=== PATIENT | female | born 1965 | race Caucasian/White ===

== ENCOUNTER 2017-06-18 | Inpatient (IN) | payer OTHER ==
[2017-06-18] MEDS ORDERED: Nitroglycerin TAB 0.4 MG* 0.4 MG TAB ONE (00:16)
[2017-06-18] MEDS ORDERED: Heparin for STEMI(*) 5,000 UNITS/ML 1 ML VIAL IV ONE (00:19)
[2017-06-18] MEDS ORDERED: NS 0.9% 1000 ML* 1,000 ML IV ONE (00:19)
[2017-06-18] MEDS ORDERED: Aspirin Low Dose CHEW TAB* 81 MG PO ONE (00:19)
[2017-06-18] MEDS ORDERED: Ondansetron INJ* 2 MG/ML VIAL IV ONE (00:19)
[2017-06-18] MEDS ORDERED: Morphine INJ* 4 MG/ML 1 ML CARPUJECT IV ONE (00:19)
[2017-06-18] MEDS: Nitroglycerin TAB 0.4 MG* 0.4 MG TAB SL PRN ×2 (00:20→00:43)
[2017-06-18] MEDS ORDERED: Ticagrelor* 90 MG TAB PO ONE (00:24)
[2017-06-18] MEDS ORDERED: fentaNYL* 50 MCG/ML 2 ML VIAL (100 MCG VIAL) ONE ×2 (00:35→01:14)
[2017-06-18] MEDS ORDERED: Midazolam* 1 MG/ML 5 ML VIAL (5 MG) ONE (00:35)
[2017-06-18] MEDS ORDERED: Heparin 2 UNITS/ML IVPREMIX* 2,000 ML IV ONE (00:36)
[2017-06-18] MEDS ORDERED: nitroGLYCERIN DRIP* 250 ML ONE (00:36)
[2017-06-18] MEDS ORDERED: Lidocaine 1% INJ* 10 MG/ML 30 ML SDV ONE (00:36)
[2017-06-18] MEDS ORDERED: Iohexol 350 (CONTRAST) 200 ML MDV IV ONE (00:36)
[2017-06-18] MEDS ORDERED: Heparin(*) 1000 UNIT/ML 10 ML VIAL CATH LAB IV ONE (00:36)
[2017-06-18] MEDS ORDERED: VERAPAMIL 2.5 MG/ML 4 ML VIAL ONE (00:36)
[2017-06-18] MEDS ORDERED: methylPREDNISolone 125 MG* 2 ML VIAL ONE ×2 (01:00→02:04)
[2017-06-18 01:23] LABS: Hematocrit 38 % (35-47); Hemoglobin 12.9 g/dl (12.0-16.0); Mean Corpuscular HGB Conc 34 g/dl (31-36); Mean Corpuscular Hemoglobin 29 pg (27-31); Mean Corpuscular Volume 85 fL (80-97); Mean Platelet Volume 8 um3 (7.4-10.4); Red Blood Count 4.49 10^6/ul (4.0-5.4); Red Cell Distribution Width 15 % (10.5-15); White Blood Count 10.9 10^3/ul (3.5-10.8)
[2017-06-18 01:42] LABS: BUN/Creatinine Ratio 18.1 (8-20); Calcium 9.2 mg/dL (8.6-10.3); EGFR African American 109.8 (>60); EGFR Non-African American 85.4 (>60); Globulin 3.2 g/dL (2-4); Potassium 3.5 mmol/L (3.5-5.0); Total Bilirubin 0.2 mg/dL (0.2-1.0); Total Protein 7.2 g/dL (6.4-8.9)
[2017-06-18] MEDS ORDERED: Atropine SYRINGE* 0.1 MG/ML 10 ML SYRINGE (1 MG) ONE (01:46)
[2017-06-18 02:19] LABS: Hematocrit 36 % (35-47); Hemoglobin 11.9 g/dl (12.0-16.0); Mean Corpuscular HGB Conc 33 g/dl (31-36); Mean Corpuscular Hemoglobin 28 pg (27-31); Mean Corpuscular Volume 85 fL (80-97); Mean Platelet Volume 8 um3 (7.4-10.4); Red Blood Count 4.22 10^6/ul (4.0-5.4); Red Cell Distribution Width 15 % (10.5-15); White Blood Count 14.1 10^3/ul (3.5-10.8)
[2017-06-18] MEDS ORDERED: Nitroglycerin TAB 0.4 MG* 0.4 MG TAB SL PRN (02:20)
[2017-06-18] MEDS ORDERED: Ondansetron INJ* 2 MG/ML VIAL IV PRN (02:24)
[2017-06-18] MEDS ORDERED: Acetaminophen TAB* 325 MG PO PRN (02:24)
[2017-06-18] MEDS ORDERED: oxyCODONE/Acetamin 5/325 MG* TAB PO PRN (02:24)
[2017-06-18] MEDS ORDERED: NS 0.9% 1000 ML* 1,000 ML IV SCH (02:30)
[2017-06-18 02:34] LABS: BUN/Creatinine Ratio 20.3 (8-20); Calcium 8.3 mg/dL (8.6-10.3); EGFR African American 125.8 (>60); EGFR Non-African American 97.8 (>60); Potassium 3.4 mmol/L (3.5-5.0)
[2017-06-18 02:37] LABS: Troponin I 0.01 ng/mL (<0.04)
[2017-06-18 02:53] LABS: HDL Cholesterol 35.1 mg/dL
[2017-06-18] MEDS: Atorvastatin* 80 MG TAB PO SCH ×2 (03:01→17:36)
[2017-06-18] MEDS: Metoprolol Tartrate TAB* 25 MG PO SCH ×2 (03:01→11:36)
--- NOTE | 2017-06-18 04:41 | ED ---
Yesy Santana Thomas, scribed for Ambrosio Stroud MD on 06/18/17 at 0022 . HPI Chest Pain - HPI Summary HPI Summary: The pt is a 52 y/o F presenting to the ED c/o mid sternal CP that began an hour ago at 23:00. The pt rates the pain 10/10. The pain is aggravated and alleviated by nothing. 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 Pt additionally c/o N/V. Pt denies SOB. The patient is accompanied by her . She has a Hx of GERD. There is no known cardiac disease. - History of Current Complaint Chief Complaint: EDChestPainROMI Hx Obtained From: Patient, Family/Speech Therapy Assistant - is present Onset/Duration: Started Minutes Ago - onset 06/17/17 at 23:00, Still Present Timing: Constant Current Severity: Severe Pain Intensity: 10 Pain Scale Used: 0-10 Numeric Chest Pain Location: Mid Sternal Aggravating Factor(s): Nothing Alleviating Factor(s): Nothing Associated Signs and Symptoms: Positive: Nausea, Vomiting. Negative: Shortness of Breath Related History: Similar Episode/Dx as: - At first, the patient thought she was having an episode of GERD - Allergy/Home Medications Allergies/Adverse Reactions: Allergies Allergy/AdvReac Type Severity Reaction Status Date / Time Shellfish Allergy Allergy Swelling Verified 06/18/17 00:09 PMH/Surg Hx/FS Hx/Imm Hx Previously Healthy: No Cardiovascular History: Denies: Hx Coronary Artery Disease, Hx Pacemaker/ICD GI History: Reports: Hx Gastroesophageal Reflux Disease Psychiatric History: Denies: Hx Panic Disorder - Cancer History Hx Chemotherapy: No Hx Radiation Therapy: No - Surgical History Surgery Procedure, Year, and Place: Infectious Disease History: No Infectious Disease History: Denies: Traveled Outside the [place] in Last 30 Days - Family History Known Family History: Negative: Other - NEGATIVE: cystic fibrosis - Social History Lives: With Family Alcohol Use: Occasionally Hx Substance Use: No Substance Use Type: Reports: None Hx Tobacco Use: Yes Smoking Status (MU): Heavy Every Day Tobacco Smoker Type: Cigarettes Review of Systems Negative: Fever Positive: Chest Pain Negative: Shortness Of Breath Positive: Vomiting, Nausea All Other Systems Reviewed And Are Negative: Yes Physical Exam Triage Information Reviewed: Yes Vital Signs On Initial Exam: Initial Vitals Temp Pulse Resp BP Pulse Ox 97.2 F 72 20 149/85 98 06/18/17 00:00 06/18/17 00:00 06/18/17 00:00 06/18/17 00:00 06/18/17 00:00 Vital Signs Reviewed: Yes Appearance: Positive: Well-Appearing, Pain Distress - moderate Skin: Positive: Warm, Skin Color Reflects Adequate Perfusion, Dry Head/Face: Positive: Normal Head/Face Inspection Eyes: Positive: EOMI, ROMEO ENT: Positive: Normal ENT inspection Neck: Positive: Supple, Nontender Respiratory/Lung Sounds: Positive: Clear to Auscultation, Breath Sounds Present Cardiovascular: Positive: RRR Abdomen Description: Positive: Nontender, Soft Bowel Sounds: Positive: Present Musculoskeletal: Positive: Normal, Strength/ROM Intact Neurological: Positive: Normal, Sensory/Motor Intact, Alert, Oriented to Person Place, Time Psychiatric: Positive: Affect/Mood Appropriate Diagnostics - Vital Signs Vital Signs Temp Pulse Resp BP Pulse Ox 06/18/17 00:00 97.2 F 72 20 149/85 98 - Laboratory Lab Results: Lab Results 06/18/17 06/18/17 06/18/17 Range/Units 00:25 00:25 00:25 WBC 10.9 H (3.5-10.8) 10^3/ul RBC 4.49 (4.0-5.4) 10^6/ul Hgb 12.9 (12.0-16.0) g/dl Hct 38 (35-47) % MCV 85 (80-97) fL MCH 29 (27-31) pg MCHC 34 (31-36) g/dl RDW 15 (10.5-15) % Plt Count 291 (150-450) 10^3/ul MPV 8 (7.4-10.4) um3 Neut % (Auto) 60.5 (38-83) % Lymph % (Auto) 30.5 (25-47) % [place] % (Auto) 5.7 (1-9) % Eos % (Auto) 2.5 (0-6) % Baso % (Auto) 0.8 (0-2) % Absolute Neuts (auto) 6.6 (1.5-7.7) 10^3/ul Absolute Lymphs (auto) 3.3 (1.0-4.8) 10^3/ul Absolute Monos (auto) 0.6 (0-0.8) 10^3/ul Absolute Eos (auto) 0.3 (0-0.6) 10^3/ul Absolute Basos (auto) 0.1 (0-0.2) 10^3/ul Absolute Nucleated RBC 0.01 10^3/ul Nucleated RBC % 0.1 INR (Anticoag Therapy) 0.90 (0.89-1.11) APTT 24.8 L (26.0-36.3) seconds Sodium (133-145) mmol/L Potassium (3.5-5.0) mmol/L Chloride (101-111) mmol/L Carbon Dioxide (22-32) mmol/L Anion Gap (2-11) mmol/L BUN (6-24) mg/dL Creatinine (0.51-0.95) mg/dL Est GFR ( Amer) (>60) Est GFR (Non-Af Amer) (>60) BUN/Creatinine Ratio (8-20) Glucose (70-100) mg/dL Lactic Acid (0.5-2.0) mmol/L Calcium (8.6-10.3) mg/dL Total Bilirubin (0.2-1.0) mg/dL AST (13-39) U/L ALT (7-52) U/L Alkaline Phosphatase (34-104) U/L Total Creatine Kinase (10-223) U/L CK-MB (CK-2) (0.6-6.3) ng/mL Troponin I (<0.04) ng/mL B-Natriuretic Peptide 23 ( - 100) pg/mL Total Protein (6.4-8.9) g/dL Albumin (3.2-5.2) g/dL Globulin (2-4) g/dL Albumin/Globulin Ratio (1-3) Triglycerides mg/dL Cholesterol mg/dL LDL Cholesterol mg/dL LDL Cholesterol Direct mg/dL HDL Cholesterol mg/dL 06/18/17 06/18/17 06/18/17 Range/Units 00:25 00:25 01:13 WBC (3.5-10.8) 10^3/ul RBC (4.0-5.4) 10^6/ul Hgb (12.0-16.0) g/dl Hct (35-47) % MCV (80-97) fL MCH (27-31) pg MCHC (31-36) g/dl RDW (10.5-15) % Plt Count (150-450) 10^3/ul MPV (7.4-10.4) um3 Neut % (Auto) (38-83) % Lymph % (Auto) (25-47) % [place] % (Auto) (1-9) % Eos % (Auto) (0-6) % Baso % (Auto) (0-2) % Absolute Neuts (auto) (1.5-7.7) 10^3/ul Absolute Lymphs (auto) (1.0-4.8) 10^3/ul Absolute Monos (auto) (0-0.8) 10^3/ul Absolute Eos (auto) (0-0.6) 10^3/ul Absolute Basos (auto) (0-0.2) 10^3/ul Absolute Nucleated RBC 10^3/ul Nucleated RBC % INR (Anticoag Therapy) 0.98 (0.89-1.11) APTT 86.4 H (26.0-36.3) seconds Sodium 137 (133-145) mmol/L Potassium 3.5 (3.5-5.0) mmol/L Chloride 102 (101-111) mmol/L Carbon Dioxide 26 (22-32) mmol/L Anion Gap 9 (2-11) mmol/L BUN 13 (6-24) mg/dL Creatinine 0.72 (0.51-0.95) mg/dL Est GFR ( Amer) 109.8 (>60) Est GFR (Non-Af Amer) 85.4 (>60) BUN/Creatinine Ratio 18.1 (8-20) Glucose 254 H (70-100) mg/dL Lactic Acid 2.4 H* (0.5-2.0) mmol/L Calcium 9.2 (8.6-10.3) mg/dL Total Bilirubin 0.20 (0.2-1.0) mg/dL AST 20 (13-39) U/L ALT 24 (7-52) U/L Alkaline Phosphatase 60 (34-104) U/L Total Creatine Kinase 136 (10-223) U/L CK-MB (CK-2) 4.6 (0.6-6.3) ng/mL Troponin I 0.00 (<0.04) ng/mL B-Natriuretic Peptide ( - 100) pg/mL Total Protein 7.2 (6.4-8.9) g/dL Albumin 4.0 (3.2-5.2) g/dL Globulin 3.2 (2-4) g/dL Albumin/Globulin Ratio 1.3 (1-3) Triglycerides 183 mg/dL Cholesterol 214 mg/dL LDL Cholesterol 142 mg/dL LDL Cholesterol Direct 157 mg/dL HDL Cholesterol 35.1 mg/dL 06/18/17 06/18/17 Range/Units 01:15 01:15 WBC 14.1 H (3.5-10.8) 10^3/ul RBC 4.22 (4.0-5.4) 10^6/ul Hgb 11.9 L (12.0-16.0) g/dl Hct 36 (35-47) % MCV 85 (80-97) fL MCH 28 (27-31) pg MCHC 33 (31-36) g/dl RDW 15 (10.5-15) % Plt Count 264 (150-450) 10^3/ul MPV 8 (7.4-10.4) um3 Neut % (Auto) 79.7 (38-83) % Lymph % (Auto) 14.6 L (25-47) % [place] % (Auto) 3.9 (1-9) % Eos % (Auto) 1.4 (0-6) % Baso % (Auto) 0.4 (0-2) % Absolute Neuts (auto) 11.2 H (1.5-7.7) 10^3/ul Absolute Lymphs (auto) 2.1 (1.0-4.8) 10^3/ul Absolute Monos (auto) 0.6 (0-0.8) 10^3/ul Absolute Eos (auto) 0.2 (0-0.6) 10^3/ul Absolute Basos (auto) 0.1 (0-0.2) 10^3/ul Absolute Nucleated RBC 0 10^3/ul Nucleated RBC % 0 INR (Anticoag Therapy) (0.89-1.11) APTT (26.0-36.3) seconds Sodium 139 (133-145) mmol/L Potassium 3.4 L (3.5-5.0) mmol/L Chloride 105 (101-111) mmol/L Carbon Dioxide 22 (22-32) mmol/L Anion Gap 12 H (2-11) mmol/L BUN 13 (6-24) mg/dL Creatinine 0.64 (0.51-0.95) mg/dL Est GFR ( Amer) 125.8 (>60) Est GFR (Non-Af Amer) 97.8 (>60) BUN/Creatinine Ratio 20.3 H (8-20) Glucose 236 H (70-100) mg/dL Lactic Acid (0.5-2.0) mmol/L Calcium 8.3 L (8.6-10.3) mg/dL Total Bilirubin (0.2-1.0) mg/dL AST (13-39) U/L ALT (7-52) U/L Alkaline Phosphatase (34-104) U/L Total Creatine Kinase (10-223) U/L CK-MB (CK-2) (0.6-6.3) ng/mL Troponin I 0.01 (<0.04) ng/mL B-Natriuretic Peptide ( - 100) pg/mL Total Protein (6.4-8.9) g/dL Albumin (3.2-5.2) g/dL Globulin (2-4) g/dL Albumin/Globulin Ratio (1-3) Triglycerides mg/dL Cholesterol mg/dL LDL Cholesterol mg/dL LDL Cholesterol Direct mg/dL HDL Cholesterol mg/dL Result Diagrams: 06/18/17 01:15 06/18/17 01:15 Lab Statement: Any lab studies that have been ordered have been reviewed, and results considered in the medical decision making process. - EKG 00:04 Cardiac Rate: NL - 67 BPM EKG Interpretation: STEMI Chest Pain Course/Dx - Course Course Of Treatment: Medication reviewed. STEMI alert called at 1218. PATIENT TAKEN TO THE BIN CLEANER. - Diagnoses Provider Diagnoses: STEMI (ST elevation myocardial infarction) - Provider Notifications Discussed Care Of Patient With: Kathy Morgan Time Discussed With Above Provider: 00:22 Instructed by Provider To: Other - I consulted with Dr. Morgan, cardiology, regarding patient care. - Critical Care Time Critical Care Time: 30-74 min Discharge - Discharge Plan Condition: Guarded Disposition: ADMITTED TO [facility] The documentation as recorded by the scribe Yesy,Felipe accurately reflects the service I personally performed and the decisions made by me, Ambrosio Stroud MD.
[2017-06-18] MEDS: Omeprazole CAP* 20 MG PO SCH (07:48)
[2017-06-18] MEDS: Aspirin Low Dose CHEW TAB* 81 MG PO SCH (09:53)
[2017-06-18] MEDS: Ticagrelor* 90 MG TAB PO SCH ×2 (09:53→21:12)
[2017-06-18] MEDS ORDERED: Metoprolol Tartrate TAB* 25 MG PO ONE (12:00)
[2017-06-18] MEDS ORDERED: Potassium Chlor TAB* 20 MEQ TAB.ER PO ONE (12:57)
--- NOTE | 2017-06-18 15:27 | HP ---
HISTORY AND PHYSICAL: DATE OF ADMISSION: 06/18/17 HISTORY OF PRESENT ILLNESS: A 52-year-old woman presenting to the ER with acute inferior wall ST el evation infarct. She is an excellent historian. In the past, she has been told that she has borderline elevated LDL offset by high HDL, and borderline diabetes. Four days ago, she had an episode of substernal chest discomfort unlike her GERD and Aleman's esophagus symptoms. It resolved spontaneously. At around 10 or 11 o'clock in the evening prior to admission, she had recurrence of the same exact chest disco mfort, feeling like a bubble in her epigastrium, it radiated to her jaw. She vomited. She presented in the ER where EKG at 0004 hours on 06/18/17 revealed [address] elevation with reciproca l ST depression in 1 and aVL. A STEMI was called. When seen in the ER, she was still complaining o f moderate chest discomfort. She has no heart failure symptoms, no palpitations, no syncope. She h as gained weight because of a back injury. She does do aerobic water exercises weekly, tries to wal k. She smokes a pack of cigarettes every 3 days. PAST MEDICAL HISTORY: Hyperlipidemia, "borderline diabetes," tobacco use, lumbar disk disease with sciatica, restless leg syndrome. PREHOSPITAL MEDICATIONS: See the MAR. ALLERGIES: SHELLFISH. FAMILY HISTORY: Her father had a stroke in his 30s. SOCIAL HISTORY: She works at [employer], smoker, . REVIEW OF SYSTEMS: General: No weight loss. No fever. ETHICS OFFICER: No history of TIA or CVA. GI: She has Aleman's esophagus with a history of reflux, has never had bleeding, tolerates aspirin but does not take it regularly. Circulatory: No claudication. Heme: No history of malignancy or anemia. Endocrine: Positive for hypoglycemia with A1c's in the past, normal per history. PHYSICAL EXAMINATION GENERAL: She was not in distress. VITAL SIGNS: BP in the ER 149/85, pulse 72. No ectopy. HEENT: Unremarkable, without xanthelasma, scleral, injection or jaundice. EOMs normal, cranial ner ves grossly intact. NECK: No thyromegaly, Carotids normal. No bruits. No JVD. LUNGS: Clear to percussion and auscultation. CARDIAC: Chest wall nontender, RV and apex not palpable. Normal S1, S2, no gallop, murmur or rub. ABDOMEN: Obese, nontender, normal bowel sounds, aorta not palpable, no bruit. Femoral pulses 2+. EXTREMITIES: Radial pulses 2+. Pedal pulses 2+. No cyanosis, clubbing, or edema. SKIN: Warm and perfused. PSYCH: Oriented and appropriate. DIAGNOSTIC STUDIES/LAB DATA: EKG as above. IMPRESSION: 1. Acute inferior wall ST elevation infarct, she underwent emergent catheterization. She has numer ous risk factors including a family history of premature vascular disease. We will check an A1c, li pids. 2. Hyperglycemia. 3. Hyperlipidemia. 4. Allergy to sea food. Even though, unlikely predictive, she will receive premedication with ster oids. Benadryl makes her hyper. [id number]/[facility] #: [id number]
[2017-06-18] MEDS: Metoprolol Tartrate TAB* 50 mg PO SCH (21:11)
[2017-06-18] MEDS ORDERED: rOPINIRole TAB* 1 MG PO SCH (23:00)
[2017-06-19] MEDS: Metoprolol Tartrate TAB* 50 mg PO SCH ×3 (05:10→21:02)
[2017-06-19 05:57] LABS: BUN/Creatinine Ratio 18.5 (8-20); Calcium 8.8 mg/dL (8.6-10.3); EGFR African American 123.6 (>60); EGFR Non-African American 96.1 (>60); Potassium 3.8 mmol/L (3.5-5.0)
[2017-06-19] MEDS: rOPINIRole TAB* 1 MG PO SCH ×4 (06:28→23:00)
[2017-06-19] MEDS: Omeprazole CAP* 20 MG PO SCH (09:08)
[2017-06-19] MEDS: Ticagrelor* 90 MG TAB PO SCH ×2 (09:08→21:02)
[2017-06-19] MEDS: Aspirin Low Dose CHEW TAB* 81 MG PO SCH (09:08)
[2017-06-19] MEDS: Atorvastatin* 80 MG TAB PO SCH (17:49)
[2017-06-20 08:10] VITALS: BP 143/74
[2017-06-20] MEDS ORDERED: Metoprolol Succinate XL TAB* 100 MG PO SCH (09:00)
[2017-06-20] MEDS ORDERED: CMCS - Prasugrel (NF) 10 MG PO SCH (09:00)
[2017-06-20] MEDS ORDERED: Pantoprazole TAB (NF) 40 MG TAB PO SCH (09:00)
[2017-06-20] MEDS: Aspirin Low Dose CHEW TAB* 81 MG PO SCH (10:08)
--- NOTE | 2017-06-21 02:13 | DS ---
CC: Dr. Roberson; Kathy Morgan MD * DISCHARGE SUMMARY: DATE OF ADMISSION: 06/18/17 DATE OF DISCHARGE: 06/20/17 PRIMARY CARE PHYSICIAN: Dr. Roberson. DISCHARGE DIAGNOSES: 1. Inferior wall ST elevation myocardial infarction. 2. Hyperlipidemia. 3. Hyperglycemia. 4. Obesity. 5. Tobacco use. 6. Restless leg syndrome. 7. SHELLFISH allergy. 8. Aleman's esophagus with gastroesophageal reflux disease. PROCEDURES: Cardiac cath, stent placement, circumflex OM, Dr. Morgan 06/18/17, right radial artery access, 3.0 x 16 Synergy drug-eluting stent. TELEMETRY CONDITION ON DISCHARGE: Stable. DIET: Low fat, low cholesterol. ACTIVITY: To avoid strenuous exertion for 1 day, to walk briskly 30 minutes daily. Wound care shower only for 3 days. DISCHARGE MEDICATIONS: Unchanged: 1. Protonix 40 mg daily. 2. Requip 3 mg at 2100, an additional at 2300 if needed. New medications: 1. Aspirin 81 mg daily. 2. Lipitor 80 mg daily. 3. Toprol-XL 100 mg daily. 4. Nitroglycerin 0.4 sublingual p.r.n. 5. Effient 10 mg daily. HISTORY: See H and P. LABORATORY DATA: Post PCI, BMP was normal on 06/19/17, her admission blood sugar was elevated at 254. Hemoglobin A1c was ordered, but is still pending. Her troponin peaked at 5.25. Her BNP was normal. Her cholesterol was 214 with LDL 142, triglycerides 183, direct LDL 157, HDL 35.1. Post PCI, creatinine remained stable. Her blood sugar on 06/19/17 was 141 fasting. IMAGING: EKG post PCI was normal aside from minimal nonspecific ST depression in the inferolateral leads. HOSPITAL COURSE: She presented with an acute inferior wall ST elevation infarct , cath revealed a culprit circumflex OM2, which was stented as above. LV function was normal with a very mild regional wall motion abnormality. Comorbidities include hyperglycemia, hyperlipidemia, and tobacco use. She received smoking cessation advice. She will follow her hyperglycemia with Dr. Roberson. She was started on high dose Lipitor as well as dual antiplatelet therapy. She had a brief 7-beat run of nonsustained VT within 24 hour post infarct, had no recurrence on beta-blockade. She is ambulatory, radial side is stable. She is being discharged to outpatient followup. [id number]/[facility] #: [id number] ALESSANDRO
== END 2017-06-20 12:35 | disposition home or self-care (01) | DRG 247 ==
LOC: ED → CHICATH 00:40 → ICU 02:08 → MEDTELE 06-19 15:07
PROVIDERS: ADMIT Internal Medicine Cardiovascular Disease; ATTEND Internal Medicine Cardiovascular Disease
PROC: 027034Z Dilation of Coronary Artery, One Artery with Drug-eluting Intraluminal Device, Percutaneous Approach (ICD-10-PCS; 2017-06-18)
PROC: B2111ZZ Fluoroscopy of Multiple Coronary Arteries using Low Osmolar Contrast (ICD-10-PCS; 2017-06-18)
PROC: 4A023N7 Measurement of Cardiac Sampling and Pressure, Left Heart, Percutaneous Approach (ICD-10-PCS; principal; 2017-06-18 00:30)
DX: I21.19 ST elevation (STEMI) myocardial infarction involving other coronary artery of inferior wall (principal); I47.2 Ventricular tachycardia; K22.70 Barrett's esophagus without dysplasia; E78.5 Hyperlipidemia, unspecified; K21.9 Gastro-esophageal reflux disease without esophagitis; Z91.013 Allergy to seafood; F17.210 Nicotine dependence, cigarettes, uncomplicated; M51.16 Intervertebral disc disorders with radiculopathy, lumbar region; G25.81 Restless legs syndrome; Z82.3 Family history of stroke; R73.9 Hyperglycemia, unspecified; Z79.82 Long term (current) use of aspirin; I25.10 Atherosclerotic heart disease of native coronary artery without angina pectoris; Z82.49 Family history of ischemic heart disease and other diseases of the circulatory system; E66.9 Obesity, unspecified; Z68.33 Body mass index [BMI] 33.0-33.9, adult
CPT/HCPCS: 36415; 80048; 80053; 80061; 82550; 82553; 83036; 83605; 83721; 83880; 84484; 85025; 85610; 85730; 87641; 93005; A9270-GY; C1725; C1757; C1769; C1876; C1887; C9606-LC; J0461; J1644; J2001; J2250; J2270; J2405; J2930; J3010